=== PATIENT | male | born 2000 | race Caucasian/White ===

== ENCOUNTER 2019-08-08 13:51 | Emergency (ER) | payer BC ==
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
== END 2019-08-08 14:30 | disposition home or self-care (01) ==
LOC: MW.ED 13:51
DX: Z76.0 Encounter for issue of repeat prescription (principal); F17.210 Nicotine dependence, cigarettes, uncomplicated
CPT/HCPCS: 99281; 99282